=== PATIENT | female | born 1985 | race American Indian/Alaskan Native ===

== ENCOUNTER 2018-09-08 11:36 | Inpatient (IN) | payer MEDICAID ==
[2018-09-08] MEDS ORDERED: LACTATED RINGERS 500 ML IV ONE (12:04)
[2018-09-08 12:48] LABS: Bilirubin,Urine NEG (Negative); Blood,Urine MOD (Negative); Color,Urine Yellow (Yellow); Mucus,Urine FEW /HPF; Protein,Urine <15 mg/dL mg/dL (Negative); Urobilinogen,Urine < 2.0 mg/dL (<2.0)
--- NOTE | 2018-09-08 14:54 | Ultrasound Report ---
ULTRASOUND BIOPHYSICAL PROFILE: History: well being Technique: Transabdominal ultrasound with Doppler interrogation. 2 - breathing movements 0 - movements 2 - posture and tone 0 - Qualitative amniotic fluid volume 4 - TOTAL SCORE OF POSSIBLE 8 Heart Rate (bpm) 135
--- NOTE | 2018-09-08 14:57 | Ultrasound Report ---
OB ULTRASOUND History EFW, RICCARDO. Technique: Transabdominal ultrasound with Doppler interrogation. Gestation: Single Position: Cephalic Amniotic Fluid: Decreased RICCARDO = 4.0 cm Placenta: Anterior Placental Grade: 1 Heart Rate: 134 BPM BPD: 8.5 cm = 34 w 1 d HC: 31.2 cm = 34 w 6 d AC: 29.5 cm = 33 w 3 d FL: 6.7 cm = 34 w 5 d HC/AC Ratio: 1.06 Cephalic Index: 79.6 Estimated Weight: 2328 grams Clinical age = 36 w 3 d EDC: 10/03/18 US Gest. Age = 34 w 2 d EDC: 10/18/18 IMPRESSION: Viable, single intrauterine as described.
[2018-09-08] MEDS ORDERED: ZOFRAN IV PRN (15:50)
[2018-09-08] MEDS ORDERED: SUBLIMAZE IV PRN (15:50)
[2018-09-08] MEDS ORDERED: BRETHINE SUB-Q PRN (15:50)
[2018-09-08] MEDS ORDERED: XYLOCAINE 2% INFILTRATI ONE (15:50)
[2018-09-08] MEDS ORDERED: MINERAL OIL PO PRN (15:50)
[2018-09-08 15:58] LABS: Basophils # (Auto) 0.1 K/mm3 (0.0-0.1); Basophils % (Auto) 0.5 % (0.0-1.8); Eosinophils # (Auto) 0.1 K/mm3 (0.0-0.4); Eosinophils % (Auto) 0.5 % (0.0-4.3); Hematocrit 33.9 % (30.3-42.9); Hemoglobin 11.2 gm/dl (10.1-14.3); Lymphocytes # (Auto) 2.7 K/mm3 (1.2-5.4); Lymphocytes % (Auto) 24.6 % (13.4-35.0); Mean Corpuscular HGB Conc 33 % (30-34); Mean Corpuscular Volume 90 fl (79-97); Monocytes % (Auto) 9.4 % (0.0-7.3); Platelet Count 333 K/mm3 (140-440); Red Blood Count 3.78 M/mm3 (3.65-5.03); Red Cell Distribution Width 13.4 % (13.2-15.2)
[2018-09-08] MEDS ORDERED: PITOCin/NS 20 UNIT/1000ML DRIP 20 UNITS/1,000 ML BAG IV SCH (16:00)
[2018-09-08] MEDS ORDERED: LACTATED RINGERS 1,000 ML IV SCH (16:00)
[2018-09-08] MEDS ORDERED: PITOCin/NS 30 UNIT/500ML 30 UNITS/500 ML BAG IV SCH (16:00)
--- NOTE | 2018-09-08 16:02 | History and Physical Report ---
History of Present Illness Date of examination: 09/08/18 (pt presents with PPROM) Date of admission: 09/08/18 14:34 History of present illness: EDC Confirmation: 10/03/2018 Gestational Age: 7 4/7 weeks Past History : 7 Term Births: 3 Premature Births: 0 Living Children: 3 Para: 3 Mult. Births: 0 Prev : 0 Aborta: 3 Elect. Ab: 3 Spont. Ab: 0 Ectopics: 0 # 1 Delivery date: 08/19/2004 Weeks Gestation: 38 labor: no Delivery type: Hours of labor: 10 Anesthesia type: epidural Delivery location: [facility] Infant Sex: Female weight: 7-4 Name: Praveena # 2 Delivery date: 2004 Delivery type: EAB # 3 Delivery date: 07/16/2008 Weeks Gestation: 38 labor: no Delivery type: Hours of labor: 20 Anesthesia type: epidural Delivery location: [place] Sex: Male weight: 6-? Name: Eleno Comments: Induction pre-eclampsia # 4 Delivery date: 2008 Delivery type: EAB # 5 Delivery date: 08/15/2011 Weeks Gestation: 39 labor: no Delivery type: Hours of labor: 6 Anesthesia type: IV Delivery location: [place] Infant Sex: Male weight: 5-13 Name: Perry # 6 Delivery date: 2011 Delivery type: EAB Past Medical History: G E R D Past Surgical History: Abdominal Surgery: umbilical hernia D&C: (2004) D&C: (2008) D&C: (2011) Family History Summary: Other family member - Has No Family History of Ovarvian Cancer - Entered On: 02/18/2018 Other family member - Has No Family History of Colon Cancer - Entered On: 02/18/2018 Other family member - Has No Family History of Breast Cancer - Entered On: 02/18/2018 Other family member - Has Family History of Hypertension - Entered On: 02/18/2018 Other family member - Has Family History of Diabetes - Entered On: 02/18/2018 Other family member - Has Family History of CVA or Stroke - Entered On: 02/18/2018 Other family member - Has Family History of Coronary Heart Disease - Entered On: 02/18/2018 Social History: Marital Status: Children: 3 Occupation: Self employed Risk Factors: Smoked Tobacco Use: Never smoker Drug use: yes Substance: marijuana Alcohol use: yes Drinks per day: social Past Medical History Surgery (Non-drum attendant): Abdominal Surgery: umbilical hernia D&C: (2004) D&C: (2008) D&C: (2011) Abnormal PAP: positive, repeat normal Social Hx: Marital Status: Children: 3 Occupation: Self employed Infection History Hx of STD: chlamydia Personal hx. of genital herpes: no Genetic History Congenital Heart Defect: Mom: no Dad: no Scott Disease: Mom: no Dad: no Thalassemia Mom: no Dad: no Neural Tube Defect Mom: no Dad: no Down's Syndrome Mom: no Dad: no Luis-Sachs Mom: no Dad: no Sickle Cell Disease/Trait Mom: no Dad: no Hemophilia Mom: no Dad: no Muscular Dystrophy Mom: no Dad: no Cystic Fibrosis Mom: no Dad: no Rola Chorea Mom: no Dad: no Mental Retardation Mom: no Dad: no Fragile X Mom: no Dad: no Other Genetic/Chromosomal Disorder Mom: no Dad: no Child w/other defect Mom: no Dad: no Active Medications (reviewed today): None Current Allergies (reviewed today): No known allergies Past History - Obstetrical History Expected Date of Delivery: 10/03/18 Actual Gestation: 36 Week(s) 4 Day(s) : 7 Para: 3 Hx # Term Pregnancies: 3 Number of Pregnancies: 0 Spontaneous Abortions: 0 Induced : 3 Number of Living Children: 3 Medications and Allergies Allergies Allergy/AdvReac Type Severity Reaction Status Date / Time No Known Allergies Allergy Verified 09/08/18 12:04 Active Meds: Active Medications Ephedrine Sulfate (Ephedrine Sulfate) 10 mg IV Q2M PRN PRN Reason: Hypotension Fentanyl (Sublimaze) 100 mcg IV Q2H PRN PRN Reason: Labor Pain Lactated Ringer's (Lactated Ringers) 1,000 mls @ 125 mls/hr IV DIRECT CHARLEY Oxytocin/Sodium Chloride (Pitocin/Ns 20 Unit/1000ml Drip) 20 units in 1,000 mls @ 125 mls/hr IV DIRECT CHARLEY Oxytocin/Sodium Chloride (Pitocin/Ns 30 Unit/500ml) 30 units in 500 mls @ 4 mls/hr IV Q30MIN CHARLEY; Protocol Lidocaine (Xylocaine 2%) 20 ml INFILTRATI ONCE ONE Stop: 09/08/18 15:51 Mineral Oil (Mineral Oil) 30 ml PO QHS PRN PRN Reason: Constipation Ondansetron HCl (Zofran) 4 mg IV Q8H PRN PRN Reason: Nausea And Vomiting Terbutaline Sulfate (Brethine) 0.25 mg SUB-Q ONCE PRN PRN Reason: Hyperstimulation/Hypertonicity - Vital Signs Vital signs: Vital Signs Pulse BP 87 139/83 09/08/18 12:02 09/08/18 12:02 Temp Pulse Resp BP Pulse Ox 99.9 F H 78 16 127/76 99 09/08/18 15:08 09/08/18 15:14 09/08/18 15:08 09/08/18 15:09 09/08/18 15:14 - Physical Exam Breasts: Positive: deferred Cardiovascular: Regular rate, Normal S1, Normal S2 Lungs: Positive: Normal air movement Abdomen: Positive: normal appearance, soft, normal bowel sounds. Negative: distention, tenderness Genitourinary (Female): Positive: normal external genitalia, normal perenium Vulva: both: normal Vagina: Positive: normal moisture. Negative: discharge Cervix: Negative: lesion, discharge Uterus: Positive: normal size, normal contour Adnexa: both: normal Anus/Rectum: Positive: normal perianal skin, heme negative. Negative: rectal mass, hemorrhoids Extremities: Positive: normal Deep Tendon Reflex Grade: Normal +2 - Obstetrical FHR: category 1 Uterine Contraction Monitor Mode: External Cervical Dilatation: 1.5 (per RN) Cervical Effacement Percentage: 50 station: -2 Uterine Contraction Pattern: Irregular Uterine Tone Measurement Phase: Resting Uterine Contraction Intensity: Mild Results Result Diagrams: 09/08/18 14:58 All other labs normal. GBS Negative HBsAg Screen Negative Negative *1 RPR Non Reactive Non Reactive *2 Rubella Antibodies, IgG 2.10 index Immune >0.99 *3 Non-immune <0.90 Equivocal 0.90 - 0.99 Immune >0.99 Tests: (3) HCV Ab w/Rflx to Verification ([id number]) ! HCV Ab <0.1 s/co ratio 0.0-0.9 *8 Tests: (4) Comment: ([id number]) ! Comment: SPRCS *9 Non reactive HCV antibody screen is consistent with no HCV infection, unless recent infection is suspected or other evidence exists to indicate HCV infection. Tests: (5) Panel [id number] ([id number]) HIV Screen 4th Generation wRfx Non Reactive Non Reactive *10 Tests: (6) Specimen Status Report ([id number]) ! Specimen Status Report NMU6 (X) *11 No urine specimen was received for culture. TEST: [id number] Urine Culture, Routine Tests: (2) CBC With Differential/Platelet ([id number]) WBC 8.4 x10E3/uL 3.4-10.8 *25 RBC 4.24 x10E6/uL 3.77-5.28 *26 Hemoglobin 12.7 g/dL 11.1-15.9 *27 Hematocrit 38.7 % 34.0-46.6 *28 MCV 91 fL 79-97 *29 MCH 30.0 pg 26.6-33.0 *30 MCHC 32.8 g/dL 31.5-35.7 *31 RDW 12.6 % 12.3-15.4 *32 Platelets 343 x10E3/uL 150-379 *33 Neutrophils 68 % Not Estab. *34 Lymphs 27 % Not Estab. *35 Monocytes 4 % Not Estab. *36 Eos 1 % Not Estab. *37 Basos 0 % Not Estab. *38 ! Immature Cells <No Reported Value> *39 Neutrophils (Absolute) 5.8 x10E3/uL 1.4-7.0 *40 Lymphs (Absolute) 2.2 x10E3/uL 0.7-3.1 *41 Monocytes(Absolute) 0.4 x10E3/uL 0.1-0.9 *42 Eos (Absolute) 0.0 x10E3/uL 0.0-0.4 *43 Baso (Absolute) 0.0 x10E3/uL 0.0-0.2 *44 ! Immature Granulocytes 0 % Not Estab. *45 ! Immature Grans (Abs) 0.0 x10E3/uL 0.0-0.1 *46 ! NRBC <No Reported Value> *47 Hematology Comments: <No Reported Value> *48 Tests: (3) ABO Grouping and Rho(D) Typing ([id number]) ABO Grouping O *49 Rh Factor Positive *50 Please note: Prior records for this patient's ABO / Rh type are not available for additional verification. Tests: (4) Antibody Screen ([id number]) Antibody Screen Negative Negative *51 Assessment and Plan 32yo with r/o ROM w/o labor. RICCARDO 4. GBS negative Orders in EMR aware of admission
--- NOTE | 2018-09-08 20:14 | Event Note ---
Date: 09/08/18 Patient now on pitocin FHT was nonreactive with decelerations around 1700 Tracing has improve with some accelerations Cat 2 will continue to watch
[2018-09-08] MEDS ORDERED: BENADRYL PO NR (20:30)
--- NOTE | 2018-09-08 21:25 | Event Note ---
Date: 09/08/18 Patient c/o pain/pitocin at 10/FHT with some deceleration. Will stop pitocin/will give O2. Allow epidural for pain releif. Discussed with patient i nducation for operative delivery
--- NOTE | 2018-09-08 21:51 | Anesthesia Consultation ---
Anesthesia Consult and Med Hx - Airway Anesthetic Teeth Evaluation: Good ROM Head & Neck: Adequate Mental/Hyoid Distance: Adequate Mallampati Class: Class II Intubation Access Assessment: Good - Pulmonary Exam CTA: Yes - Cardiac Exam Cardiac Exam: RRR - Pre-Operative Health Status ASA Pre-Surgery Classification: ASA2 Proposed Anesthetic Plan: Epidural, Spinal - Pulmonary Hx Smoking: No Hx Asthma: No COPD: No Hx Pneumonia: No - Cardiovascular System Hx Hypertension: No Hx Coronary Artery Disease: No Hx Heart Attack/AMI: No Hx Angina: No Hx Percutaneous Transluminal Coronary Angioplasty (PTCA): No Hx Cardia Arrhythmia: No Hx Pacemaker: No Hx Internal Defibrillator: No Hx Valvular Heart Disease: No Hx Heart Murmur: No Hx Peripheral Vascular Disease: No - Central Nervous System Hx Neuromuscular Disorder: No Hx Seizures: No CVA: No Hx Back Pain: No Hx Psychiatric Problems: No - Gastrointestinal Hx Ulcer: No Hx Gastroesophageal Reflux Disease: No - Endocrine Hx Renal Disease: No Hx End Stage Renal Disease: No Hx Cirrhosis: No Hx Liver Disease: No Hx Insulin Dependent Diabetes: No Hx Non-Insulin Dependent Diabetes: No Hx Thyroid Disease: No Hx Hypothyroidism: No Hx Hyperthyroidism: No - Hematic Hx Anemia: No Hx Sickle Cell Disease: No - Other Systems Hx Alcohol Use: No Hx Substance Use: No Hx Cancer: No Hx Obesity: Yes
[2018-09-08] MEDS ORDERED: NARCAN 2 MG/2 ML IV PRN (21:54)
[2018-09-08] MEDS ORDERED: AMPICILLIN/NS 1 GM/50 ML 1 GM/50 ML BAG IV SCH (22:00)
[2018-09-08] MEDS ORDERED: fentaNYL-BUPIV 2 MCG/ML-0.125% 200 MCG/100 ML BAG EPIDURAL SCH (22:00)
--- NOTE | 2018-09-08 23:58 | Procedure Note ---
OB Delivery Note - Delivery Date of Delivery: 09/08/18 Surgeon: EL LOPEZ Estimated blood loss: 300cc - Vaginal Delivery position: OA Intrapartum events: labor-<37 weeks, precipitous labor- <3hr (active labor) Delivery augmentation: pitocin Delivery monitor: external FHT, external uterine Route of delivery: Delivery placenta: manual Episiotomy: none Delivery laceration: none Anesthesia: epidural Delivery comments: Patient with a precipitous delivery patient. Nurse went into the room due to heart tones suddenly not been seen on central monitoring. Patient complained of some pressure and on exam nurse was and quickly delivered, after that shortly arrived afterwards as I was coming to follow up on the patient. Cord cut the cord clamped and cord blood was obtained. Did have delayed of greater than 30 minutes with delivery of placenta and required manual extraction of felt all the placenta - Infant A at 1 minute: 8 at 5 minutes: 9 Infant Gender: Female (Wt 4lbs 13oz)
[2018-09-09] MEDS ORDERED: NORCO 5/325 PO PRN (01:46)
[2018-09-09] MEDS ORDERED: PHENERGAN PO PRN (01:46)
[2018-09-09] MEDS ORDERED: SODIUM CHLORIDE FLUSH SYRINGE 10 ML IV PRN (01:46)
[2018-09-09] MEDS ORDERED: TYLENOL PO PRN (01:46)
[2018-09-09] MEDS ORDERED: DULCOLAX PR PRN (01:46)
[2018-09-09] MEDS ORDERED: ZOFRAN IV PRN (01:46)
[2018-09-09] MEDS ORDERED: BENADRYL PO PRN (01:46)
[2018-09-09] MEDS ORDERED: TUCKS PAD TP PRN (01:46)
[2018-09-09] MEDS ORDERED: LANSINOH TP PRN (01:46)
[2018-09-09] MEDS ORDERED: MILK OF MAGNESIA PO PRN (01:46)
[2018-09-09] MEDS: IBUPROFEN PO SCH ×5 (02:16→23:57)
--- NOTE | 2018-09-09 04:25 | Post Anesthesia Evaluation ---
- Post Anesthesia Evaluation Patient Participated: Yes Airway Patent: Yes Stable Respiratory Function: Yes Nausea/Vomiting: No Temp > 96.8F: Yes Pain Manageable: Yes Adequeate Hydration: Yes Anesthesia Complications: No Block Receding Appropriately: Yes Patient on Ventilator: No
--- NOTE | 2018-09-09 07:39 | Progress Note ---
Assessment and Plan Patient doing well, no complaints. VSSAF, H&H to be drawn @ 1151 this morning. lochia scant, fundus firm. Continue current pathway. - Patient Problems (1) (spontaneous vaginal delivery) Current Visit: Yes Status: Acute Subjective - Subjective Date of service: 09/09/18 Principal diagnosis: day #1 s/p Patient reports: appetite normal, voiding normally, pain well controlled, ambulating normally, no dizzy ambulation, no nauseated : doing well Objective - Vital Signs Latest vital signs: Vital Signs Temp Pulse Resp BP BP Pulse Ox 09/09/18 04:45 98.3 F 84 20 107/52 97 09/09/18 02:16 97.2 F L 76 20 117/77 99 09/09/18 01:13 69 135/86 09/09/18 01:10 97.9 F 18 09/09/18 00:58 78 129/58 09/09/18 00:43 64 125/62 09/09/18 00:14 71 107/54 09/08/18 23:43 80 156/109 09/08/18 23:13 73 127/84 09/08/18 23:09 80 94 09/08/18 23:04 68 100 09/08/18 23:00 42 L 09/08/18 22:59 66 100 09/08/18 22:58 61 126/81 09/08/18 22:55 78 67 L 09/08/18 22:54 65 100 09/08/18 22:49 74 78 L 09/08/18 22:47 78 83 L 09/08/18 22:44 57 L 100 09/08/18 22:43 58 L 132/81 09/08/18 22:39 63 100 09/08/18 22:34 62 100 09/08/18 22:29 67 100 09/08/18 22:28 61 112/56 09/08/18 22:24 67 100 09/08/18 22:19 75 99 09/08/18 22:14 62 100 09/08/18 22:11 67 143/74 09/08/18 22:09 59 L 130/80 100 09/08/18 22:07 66 140/87 09/08/18 22:05 64 131/88 91 09/08/18 22:04 87 93 09/08/18 22:03 64 122/81 09/08/18 22:01 62 126/84 09/08/18 21:59 79 128/84 100 09/08/18 21:57 62 121/80 09/08/18 21:56 71 89 09/08/18 21:55 61 116/78 09/08/18 21:54 64 100 09/08/18 21:53 65 115/73 09/08/18 21:51 60 137/71 09/08/18 21:49 64 123/86 99 09/08/18 21:47 69 116/79 65 L 09/08/18 21:45 98.3 F 79 18 116/77 09/08/18 21:44 77 98 09/08/18 21:43 73 118/81 09/08/18 21:41 75 114/77 09/08/18 21:39 70 122/80 100 09/08/18 21:37 74 121/82 09/08/18 21:35 66 124/86 65 L 09/08/18 21:34 73 100 09/08/18 21:33 65 126/88 09/08/18 21:29 77 99 09/08/18 21:26 77 L 09/08/18 21:24 85 100 09/08/18 21:19 63 100 09/08/18 21:14 66 109/68 100 09/08/18 20:14 68 138/92 09/08/18 19:25 98.9 F 18 09/08/18 18:14 72 127/80 09/08/18 18:00 98 F 09/08/18 17:14 71 123/76 09/08/18 16:13 74 120/80 09/08/18 15:14 78 99 09/08/18 15:09 80 127/76 99 09/08/18 15:08 99.9 F H 78 16 127/76 100 09/08/18 13:01 86 132/83 09/08/18 12:46 76 135/87 09/08/18 12:31 82 138/90 09/08/18 12:16 87 141/84 09/08/18 12:09 98.5 F 87 20 139/83 09/08/18 12:02 87 139/83 Intake and Output 09/08/18 09/08/18 09/09/18 15:59 23:59 07:59 Intake Total 8.167 220 Output Total 900 800 Balance -891.833 -580 Intake: IV 8.167 PITOCin/NS 30 UNIT/500ML 8.167 30 units In 500 ml @ 4 mls/hr IV Q30MIN [facility] Rx#: [id number] Oral 220 Output: Urine 900 800 Indwelling Catheter 900 800 Other: Total, Intake Amount 100 Total, Output Amount 900 400 Weight 105.687 kg Estimated Blood Loss 300 - Exam Breasts: Present: normal Cardiovascular: Present: Regular rate Lungs: Present: Clear to auscultation, Normal air movement Abdomen: Present: normal appearance, soft Vulva: both: normal Uterus: Present: normal Extremities: Present: normal - Labs Labs: Abnormal lab results 09/08/18 Range/Units 14:58 [place] % (Auto) 9.4 H (0.0-7.3) % [place] # 1.0 H (0.0-0.8) K/mm3
[2018-09-09] MEDS: COLACE PO SCH ×2 (10:16→21:21)
[2018-09-09] MEDS: PRENATAL VITAMIN PO SCH (10:16)
[2018-09-09 13:37] LABS: Hematocrit 27.7 % (30.3-42.9); Hemoglobin 9.2 gm/dl (10.1-14.3)
[2018-09-09] MEDS ORDERED: BOOSTRIX IM ONE (22:00)
[2018-09-10] MEDS: IBUPROFEN PO SCH ×3 (05:05→17:01)
[2018-09-10] MEDS ORDERED: DEPO-PROVERA (CONTRACEPTION) IM ONE ×2 (06:34→12:00)
--- NOTE | 2018-09-10 06:40 | Discharge Summary ---
Providers - Providers Date of Admission: 09/08/18 14:34 Date of discharge: 09/10/18 (pt aware she has to stay until baby is 48hrs old which is 2330 Pt ask for d/c so they can leave in the morning early) Attending physician: EL LOPEZ 09/09/18 01:46 Consult to Field Operations Supervisor [CONS] Routine Reason For Exam: assistance with , SNS Primary care physician: EL LOPEZ Hospitalization Reason for admission: induction of labor Delivery: Episiotomy: none Laceration: none Incision: normal Other procedures: none complications: none Discharge diagnosis: IUP at term delivered baby: female Hospital course: uncomplicated vaginal delivery Pt resting No c/o voiced VSS FF below umb Lochia scant perineum intact H&H 05/29 drop r/t blood loss from delivery Pt w/o s/sx of anemia Doing well s/p vag delivery. P: d/c today with instructions RTO 4 weeks Depo for BC until tubal can be done Condition at discharge: Good Disposition: DC-01 TO HOME OR SELFCARE - Discharge Diagnoses (1) (spontaneous vaginal delivery) Status: Acute Comment: RTO 4 weeks PP care Plan - Provider Discharge Summary Activity: routine, no sex for 6 weeks, no heavy lifting 4 weeks, no strenuous exercise Diet: routine Instructions: routine Additional instructions: [] Smoking cessation referral if applicable(refer to patient education folder for contact #) [] Refer to [facility]'s [facility] Booklet Call your doctor immediately for: * Fever > 100.5 * Heavy vaginal bleeding ( >1 pad per hour) * Severe persistent headache * Shortness of breath * Reddened, hot, painful area to leg or breast * Drainage or odor from incision. * Keep incision clean and dry at all times and follow doctor's instructions regarding bathing/showering - Follow up plan Follow up: EL LOPEZ MD [Primary Care Provider] - 10/09/18 (Congratulations! Please call [phone] to schedule your visit in 4 weeks. Take Motrin/ibuprofen for cramping/pain. Call with concerns.)
[2018-09-10] MEDS: PRENATAL VITAMIN PO SCH (10:26)
[2018-09-10] MEDS: COLACE PO SCH ×2 (10:26→22:11)
[2018-09-11] MEDS: IBUPROFEN PO SCH ×2 (00:03→05:40)
[2018-09-11 10:12] VITALS: BP 111/72
== END 2018-09-11 12:30 | disposition home or self-care (01) | DRG 775 ==
LOC: TRG 11:36 → LD 14:34 → OB 09-09 02:05
PROVIDERS: ADMIT Obstetrics & Gynecology; ATTEND Obstetrics & Gynecology
PROC: 10E0XZZ Delivery of Products of Conception, External Approach (ICD-10-PCS; principal; 2018-09-08)
PROC: 3E0R3BZ Introduction of Anesthetic Agent into Spinal Canal, Percutaneous Approach (ICD-10-PCS; 2018-09-08)
PROC: 00HU33Z Insertion of Infusion Device into Spinal Canal, Percutaneous Approach (ICD-10-PCS; 2018-09-08)
DX: O62.3 Precipitate labor (principal); O99.62 Diseases of the digestive system complicating childbirth; K21.9 Gastro-esophageal reflux disease without esophagitis; Z3A.36 36 weeks gestation of pregnancy; Z37.0 Single live birth; Z82.49 Family history of ischemic heart disease and other diseases of the circulatory system; Z83.3 Family history of diabetes mellitus; Z82.3 Family history of stroke
CPT/HCPCS: 36415; 76816; 76819; 81001; 85014; 85018; 85025; 86592; 86850; 86900; 86901; 88307; 90715; G0378; J0290; J1050; J2590; J3010; J7120

== ENCOUNTER 2018-10-21 07:25 | Day surgery (SDC) | payer MEDICAID ==
--- NOTE | 2018-10-20 23:53 | History and Physical Report ---
History of Present Illness Date of examination: 10/16/18 Chief complaint: sterilization History of present illness: Past History : 7 Term Births: 3 Premature Births: 1 Living Children: 4 Para: 4 Mult. Births: 0 Prev : 0 Aborta: 3 Elect. Ab: 3 Spont. Ab: 0 Ectopics: 0 # 1 Delivery date: 08/19/2004 Weeks Gestation: 38 labor: no Delivery type: Hours of labor: 10 Anesthesia type: epidural Delivery location: [facility] Sex: Female weight: 7-4 Name: Praveena # 2 Delivery date: 2004 Delivery type: EAB # 3 Delivery date: 07/16/2008 Weeks Gestation: 38 labor: no Delivery type: Hours of labor: 20 Anesthesia type: epidural Delivery location: [place] Infant Sex: Male weight: 6-? 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 of genital herpes: no Hx of STD: chlamydia Active Medications (reviewed today): BREAST PUMP (MISC. DEVICES) use as directed Current Allergies (reviewed today): No known allergies Past Medical History: Reviewed history from 02/18/2018 and no changes required: G E R D Past Surgical History: Reviewed history from 02/18/2018 and no changes required: Abdominal Surgery: umbilical hernia D&C: (2004) D&C: (2008) D&C: (2011) Social History: Reviewed history from 02/18/2018 and no changes required: Marital Status: Children: 4 Occupation: Self employed Risk Factors: Smoked Tobacco Use: Current every day smoker Smokeless Tobacco Use: Never Counseled to quit/cut down: yes Tobacco Use Comments: vape Drug use: no Alcohol use: yes Exercise: no Seatbelt use: 100 % PAP Smear History: Date of Last PAP Smear: 02/18/2018 Physical Exam Appearance: well developed, well nourished, no acute distress Other Exams Lungs: no rales, rhonchi, or wheezes Heart: S1, S2, no murmur, rub, or gallop Impression & Recommendations: Problem # 1: Sterilization (ICD-V25.2) (NBX17-S71.2) Patient desires (B)salpingectomy for sterilization Risks of regret emphasized. Permanent and irreversible condition explained to patient. Pt verbalized understanding. Consent reviewed and signed. Pre- operative instructions sheets given. The risks and alternatives to this surgery were reviewed with the patient. Infection precautions reviewed, pt to call for any signs or symptoms of infection. Patient given ample opportunity to have all her questions answered before signing informed consent. Patient informed of possible bleeding. 1%failure rate emphasized Possible laparoscopy or laparotomy explained to patient. The risks and alternatives for this surgery were reviewed with the patient. She was informed of possible bleeding, infection, injury to bowel, bladder, ureters or other adjacent organs. The patient was instructed/informed the following: The normal length of hospital stay for this procedure. Nothing to eat or drink after midnight the evening prior to surgery. Clear liquids the day before surgery. Fleets enema the day prior to surgery. Pre-op instruction sheets given. Wound care instructions given. Infection precautions reviewed, patient to call for any signs or symptoms of infection. The usual discomforts associated with this procedure were detailed. Proper use of pain medicines was reviewed. Patient was given ample opportunity to have all her questions answered before signing informed consent.Consent reviewed and signed . Medications and Allergies Allergies Allergy/AdvReac Type Severity Reaction Status Date / Time No Known Allergies Allergy Verified 10/15/18 18:40 Home Medications Medication Instructions Recorded Confirmed Last Taken Type No Known Home Medications [No 09/09/18 10/15/18 Unknown History Reported Home Medications] Active Meds: Active Medications Cefazolin Sodium (Ancef/Sterile Water 2 Gm/20 Ml) 2 gm in 20 mls @ 80 mls/hr IV PREOP NR; Protocol Assessment and Plan - Patient Problems (1) Sterilization Status: Acute
[~2018-10-21 07:25] MED LIST: ANCEF/STERILE WATER 2 GM/20 ML 2 GM/20 ML SYRINGE IV NR
[2018-10-21 08:32] LABS: Hematocrit 38.2 % (30.3-42.9); Hemoglobin 12.3 gm/dl (10.1-14.3)
[2018-10-21] MEDS ORDERED: MARCAINE 0.5% INFILTRATI ONE ×3 (08:52→10:07)
[2018-10-21] MEDS ORDERED: PEPCID IV NR (09:00)
[2018-10-21] MEDS ORDERED: LACTATED RINGERS 1,000 ML IV SCH (09:00)
[2018-10-21] MEDS ORDERED: VERSED IV NR (09:00)
[2018-10-21] MEDS ORDERED: XYLOCAINE MPF 2% ONE (09:07)
[2018-10-21] MEDS ORDERED: DILAUDID ONE (09:07)
[2018-10-21] MEDS ORDERED: DIPRIVAN 10 MG/ML IV ONE (09:07)
[2018-10-21] MEDS ORDERED: NACL 0.9% IR ONE (10:07)
[2018-10-21] MEDS ORDERED: BLOXIVERZ ONE (10:25)
[2018-10-21] MEDS ORDERED: TORADOL ONE (10:25)
[2018-10-21] MEDS ORDERED: ROBINUL ONE (10:25)
[2018-10-21] MEDS ORDERED: ZOFRAN ONE (10:25)
[2018-10-21] MEDS ORDERED: ZEMURON IV ONE (10:25)
--- NOTE | 2018-10-21 10:53 | Operative Report ---
Operative Report Operative Report: Date: 10/21/2018 Preoperative diagnosis: Desire sterilization Postoperative diagnosis: Desire sterilization Procedure: Laparoscopic bilateral salpingectomy for sterilization Surgeon: Serina Leal MD Heavy Truck Technician: [] Anesthesiologist: Dr. Booth Anesthesia: Gen. endotracheal anesthesia EBL: Minimal Findings: Small uterine fibroids otherwise grossly normal uterus tubes and ovaries Procedure: After risks, benefits, consequences, alternatives and complications were discussed patient voiced her understanding and desire to proceed, she was taken to the OR and placed in the supine position. After general anesthesia was induced, she was placed in the dorsal lithotomy position. Exam under anesthesia was unremarkable. She was then prepped and draped in the usual sterile fashion. After a timeout was performed, the bladder was drained of approximately 200 mL of clear yellow urine.. A operative speculum was introduced into the vagina, and anterior lip cervix was grasped with a single- toothed tenaculum. The uterus was sounded to 10 cm. The cervix was progressively dilated to allow the Sargis uterine manipulator. The tenaculum and speculum were removed. Sterile gloves were placed and attention was turned to the abdomen. An supraumbilical incision was made and a 5 mm Optiview trocar with scope and camera attached were placed through the incision. The abdomen was entered under direct visualization. Adhesions of omentum to the anterior abdominal wall was noted. . The abdomen was then insufflated. No bowel, bladder, ureteral, or major vessel injury was noted. She was then placed in steep Trendelenburg position. The above findings were noted. An additional 5 mm trocar was placed through a suprapubic midline incision made approximately 2 cm superior to the symphysis pubis. A 5 mm trocar was introduced under direct visualization. No bowel, bladder or ureteral or major vascular injury was noted. The uterus was elevated, using the 5 mm Voyant 5mm fusion devive, bilateral salpingectomy was performed. Each tube was removed through the suprapubic trocar. Attention was turned to the adnexa where hemostasis was noted. The 5 mm laparoscope was then introduced through the suprapubic trocar inspected the supraumbilical entry point. Again no bowel, bladder or ureteral or major vascular injury was noted. The CO2 was released from the abdomen under direct visualization. All areas appeared to be hemostatic again no obvious evidence of bowel, bladder, ureteral or vascular injury. Surgicel was placed to assure further hemostasis. At this point the procedure was ended. The remaining CO2 in the abdomen was released. Patient was taken out of T rendelenburg position. The incisions were reapproximated using 4-0 Vicryl in a subcuticular manner. The incisions were then infused with half percent Marcaine without epinephrine. Then attention was turned to the vagina where the uterine manipulator was removed. There was bleeding noted on the anterior aspect of the cervix that was made hemostatic with pressure. Counts were correct 3 patient tolerated procedure well was taken to recovery in stable condition
[2018-10-21] MEDS: SUBLIMAZE IV PRN ×2 (10:55→11:00)
--- NOTE | 2018-10-21 11:00 | Discharge Summary ---
Providers - Providers Date of discharge: 10/21/18 Attending physician: CDOIE FERGUSON Primary care physician: CHRISTOPHER PEREZ Hospitalization Condition: Good Procedures: (B) salpingectomy Hospital course: Unremarkable Disposition: DC-01 TO HOME OR SELFCARE - Discharge Diagnoses (1) Sterilization Status: Acute Core Measure Documentation - Palliative Care Palliative Care/ Comfort Measures: Not Applicable - Core Measures Any of the following diagnoses?: none Exam - Constitutional Vitals: Temp Pulse Resp BP Pulse Ox 98.8 F 72 18 125/89 98 10/21/18 08:30 10/21/18 08:30 10/21/18 08:30 10/21/18 08:30 10/21/18 08:30 General appearance: Present: no acute distress - Respiratory Respiratory effort: normal - Cardiovascular Rhythm: regular Plan Activity: other (No sex) Weight Bearing Status: Weight Bear as Tolerated Diet: regular Wound: open to air, keep clean and dry Follow up with: CHRISTOPHER PEREZ MD [Primary Care Provider] - 7 Days CODIE FERGUSON MD [Staff Physician] - (as scheduled) Prescriptions: Ibuprofen [Motrin 800 MG tab] 800 mg PO TID PRN #30 tablet PRN Reason: Pain oxyCODONE /ACETAMINOPHEN [Percocet 5/325 mg] 1 - 2 tab PO Q4HR PRN #10 tablet PRN Reason: Pain
[2018-10-21] MEDS ORDERED: BENADRYL IV PRN (11:15)
[2018-10-21 12:07] VITALS: BP 126/85
--- NOTE | 2018-10-21 14:55 | Anesthesia Day of Surgery ---
Anesthesia Day of Surgery - Day of Surgery Patient Examined: Yes Patient H&P Reviewed: Yes Patient is NPO: Yes Beta Blockers: No Cardiac Clearance: No Pulmonary Clearance: No Anshu's Test: N/A
--- NOTE | 2018-10-21 15:03 | Anesthesia Consultation ---
Anesthesia Consult and Med Hx - Airway Anesthetic Teeth Evaluation: Good ROM Head & Neck: Adequate Mental/Hyoid Distance: Adequate Mallampati Class: Class III Intubation Access Assessment: Good - Pulmonary Exam CTA: Yes - Cardiac Exam Cardiac Exam: RRR - Pre-Operative Health Status ASA Pre-Surgery Classification: ASA2 Proposed Anesthetic Plan: General - Pre-Anesthesia Comment Pre-Anesthesia Comments: ASA II otherwise halthy woman for BTL - Pulmonary Hx Smoking: No Hx Asthma: No COPD: No Hx Pneumonia: No - Cardiovascular System Hx Hypertension: No Hx Coronary Artery Disease: No Hx Heart Attack/AMI: No Hx Angina: No Hx Percutaneous Transluminal Coronary Angioplasty (PTCA): No Hx Cardia Arrhythmia: No Hx Pacemaker: No Hx Internal Defibrillator: No Hx Valvular Heart Disease: No Hx Heart Murmur: No Hx Peripheral Vascular Disease: No - Central Nervous System Hx Neuromuscular Disorder: No Hx Seizures: No CVA: No Hx Back Pain: No Hx Psychiatric Problems: No - Gastrointestinal Hx Ulcer: No Hx Gastroesophageal Reflux Disease: No - Endocrine Hx Renal Disease: No Hx End Stage Renal Disease: No Hx Cirrhosis: No Hx Liver Disease: No Hx Insulin Dependent Diabetes: No Hx Non-Insulin Dependent Diabetes: No Hx Thyroid Disease: No Hx Hypothyroidism: No Hx Hyperthyroidism: No - Hematic Hx Anemia: No Hx Sickle Cell Disease: No - Other Systems Hx Alcohol Use: No Hx Substance Use: No Hx Cancer: No Hx Obesity: Yes
== END 2018-10-21 12:56 | disposition home or self-care (01) ==
LOC: OR 07:25
PROVIDERS: ATTEND Obstetrics & Gynecology
DX: Z30.2 Encounter for sterilization (principal); K21.9 Gastro-esophageal reflux disease without esophagitis; E66.9 Obesity, unspecified; Z68.35 Body mass index [BMI] 35.0-35.9, adult; Z98.890 Other specified postprocedural states; Z83.3 Family history of diabetes mellitus; Z82.49 Family history of ischemic heart disease and other diseases of the circulatory system; Z79.899 Other long term (current) drug therapy
CPT/HCPCS: 36415; 58661; 81025; 85014; 85018; 86850; 86900; 86901; 88302; J0690; J1170; J1200; J1885; J2250; J2405; J2704; J2710; J3010; J7120